=== PATIENT | male | born 1970 | race Caucasian/White ===

== ENCOUNTER 2018-11-14 15:22 | Inpatient (IN) | payer MEDICAID ==
[~2018-11-14] VITALS: Ht 165.1 cm; Wt 104.8 kg
[2018-11-14] MEDS ORDERED: SODIUM BICARBONATE 4% (2.4MEQ) 5ML VIAL IV ONE (15:56)
[2018-11-14] MEDS ORDERED: LIDOCAINE HCL 1% 20ML VIAL (Pyxis) INJ ONE (15:56)
[2018-11-14] MEDS ORDERED: KETOROLAC 30MG/ML VIAL IV STA (17:18)
[2018-11-14] MEDS ORDERED: SODIUM CHLORIDE 0.9% 1,000 ML IV ONE (17:18)
[2018-11-14 19:15] LABS: BASOPHILS % 0.2 % (0.0-2.0); EOSINOPHILS % 0.9 % (0.0-5.0); HEMATOCRIT. 37.5 % (42.0-52.0); HEMOGLOBIN. 13.1 g/dL (14.0-18.0); LYMPHOCYTES % 27.4 % (20.0-50.0); MEAN CORPUSCULAR HEMOGLOBIN 29.1 pg (28.0-32.0); MEAN CORPUSCULAR VOLUME 83.3 fL (80.0-94.0); MEAN PLATELET VOLUME 10.6 fl (7.4-10.4); MONOCYTES % 10.3 % (2.0-8.0); NEUTROPHILS % 61.2 % (40.0-76.0); PLATELET 117 x1000/uL (130-400); RED BLOOD CELL COUNT 4.51 mill/uL (4.7-6.1); RED CELL DISTRIBUTION WIDTH 13.8 % (11.6-14.6)
[2018-11-14] MEDS ORDERED: TAMSULOSIN HCL 0.4MG SR CAPSULE PO ONE (19:15)
[2018-11-14 19:20] LABS: CHLORIDE 107 mEq/L (98-107)
[2018-11-14] MEDS ORDERED: MORPHINE SULFATE 4 MG/ML CPJ (NOT FOR IM USE) IV ONE (19:30)
[2018-11-14] MEDS ORDERED: ONDANSETRON HCL 4MG/2ML INJ IV ONE (19:30)
[2018-11-14] MEDS ORDERED: DOCUSATE SODIUM 100MG CAPSULE PO ONE (19:30)
[2018-11-14 19:33] LABS: CLARITY URINE TURBID (CLEAR); COLOR URINE RED (YELLOW); KETONES URINE 2+ (NEGATIVE); LEUKOCYTE ESTERASE URINE 3+ (NEGATIVE); NITRITE URINE POSITIVE (NEGATIVE); OCCULT BLOOD URINE 3+ (NEGATIVE); PROTEIN URINE 4+ (NEGATIVE); SPECIFIC GRAVITY URINE 1.021 (1.005-1.030)
[2018-11-14] MEDS ORDERED: CEFTRIAXONE 1 G PREMIX 50 ML IV ONE (19:45)
[2018-11-14] MEDS ORDERED: GUAIFENESIN 200MG/10ML SUGAR FREE UDC PO PRN (21:00)
[2018-11-14] MEDS ORDERED: ONDANSETRON HCL 4MG/2ML INJ IV PRN (21:00)
[2018-11-14] MEDS ORDERED: NITROGLYCERIN 0.4MG TABLET SL SL PRN (21:00)
[2018-11-14] MEDS ORDERED: LORAZEPAM 0.5MG TABLET PO PRN (21:00)
[2018-11-14] MEDS ORDERED: IPRATROPIUM/ALBUTEROL 0.5-3(2.5)MG/3ML NEB INH PRN (21:00)
[2018-11-14] MEDS ORDERED: LEVOFLOXACIN 500MG PREMIX 100 ML IV SCH (21:00)
[2018-11-14] MEDS ORDERED: ACETAMINOPHEN 325MG TABLET PO PRN (21:00)
[2018-11-14] MEDS ORDERED: FAMOTIDINE 20MG TABLET PO SCH (21:00)
[2018-11-14] MEDS ORDERED: CLONIDINE 0.1MG TABLET PO PRN (21:00)
[2018-11-14] MEDS ORDERED: ENOXAPARIN 40MG/0.4ML SYR SUBCUT SCH (21:00)
[2018-11-14] MEDS ORDERED: KETOROLAC 15MG/ML VIAL IV PRN (21:17)
[2018-11-14 21:26] LABS: FOLIC ACID (FOLATE) SERUM >20 ng/mL ng/mL (>5.38)
[2018-11-14 21:37] LABS: VITAMIN B12 SERUM 328 pg/mL (211-911)
[2018-11-14 23:55] VITALS: BP 129/57
[2018-11-15] VITALS: BP 129/57
[2018-11-15] MEDS ORDERED: COLC0.6C3 PO (00:57)
[2018-11-15] MEDS ORDERED: PROB500T9 MT (00:57)
[2018-11-15] MEDS: LEVOFLOXACIN 250MG PREMIX 50 ML IV SCH (01:00)
[2018-11-15] MEDS: SODIUM CHLORIDE 0.9% 1,000 ML IV SCH (02:40)
[2018-11-15 04:00] VITALS: BP 104/50
[2018-11-15 08:00] VITALS: BP 113/61
[2018-11-15] MEDS: AMLODIPINE 10MG TABLET PO SCH (08:43)
[2018-11-15] MEDS: FAMOTIDINE 20MG TABLET PO SCH (08:44)
[2018-11-15] MEDS: TAMSULOSIN HCL 0.4MG SR CAPSULE PO SCH (08:44)
[2018-11-15] MEDS: ENOXAPARIN 40MG/0.4ML SYR SUBCUT SCH ×2 (08:45→08:56)
[2018-11-15] MEDS ORDERED: ENOXAPARIN 30MG/0.3ML SYR SUBCUT SCH (09:00)
[2018-11-15 10:59] LABS: HEMATOCRIT 37.5 % (42.0-52.0); HEMOGLOBIN 12.9 g/dL (14.0-18.0); MEAN CORPUSCULAR HEMOGLOBIN 28.6 pg (28.0-32.0); MEAN CORPUSCULAR VOLUME 83.1 fL (80.0-94.0); PLATELET 109 x1000/uL (130-400); RED BLOOD CELL COUNT 4.51 mill/uL (4.7-6.1); RED CELL DISTRIBUTION WIDTH 13.6 % (11.6-14.6)
[2018-11-15 12:00] VITALS: BP 127/63
[2018-11-15] MEDS ORDERED: FENTANYL CITRATE/PF 50MCG/ML 2ML VIAL ONE (13:02)
[2018-11-15] MEDS ORDERED: MIDAZOLAM HCL 2 MG/2 ML VIAL ONE (13:02)
[2018-11-15] MEDS ORDERED: ROCURONIUM BROMIDE 10MG/ML VIAL 5ML IV ONE (13:02)
[2018-11-15] MEDS ORDERED: PROPOFOL 200MG/20ML VIAL IV ONE (13:02)
[2018-11-15] MEDS ORDERED: ONDANSETRON HCL 4MG/2ML INJ ONE (13:32)
[2018-11-15] MEDS ORDERED: SUCCINYLCHOLINE CHLORIDE 200MG/10ML IV ONE (13:32)
[2018-11-15] MEDS ORDERED: METOCLOPRAMIDE HCL 10MG/2ML VIAL ONE (13:32)
[2018-11-15] MEDS ORDERED: NEOSTIGMINE METHYLSULFATE 1MG/ML 10 ML VIAL ONE (13:34)
[2018-11-15] MEDS ORDERED: GLYCOPYRROLATE 0.2 MG/ML 2ML VIAL ONE (13:34)
[2018-11-15] MEDS ORDERED: HALOPERIDOL LACTATE 5MG/ML VIAL IM SCH (14:15)
[2018-11-15] MEDS ORDERED: MORPHINE SULFATE 4 MG/ML CPJ (NOT FOR IM USE) IV PRN (14:30)
[2018-11-15] MEDS ORDERED: ONDANSETRON HCL 4MG/2ML INJ IV PRN (14:30)
[2018-11-15] MEDS ORDERED: MEPERIDINE HCL/PF 25MG/ML CPJ IV PRN (14:30)
[2018-11-15] MEDS ORDERED: FENTANYL CITRATE/PF 50MCG/ML 2ML VIAL IV PRN (14:30)
[2018-11-15] MEDS ORDERED: HYDROMORPHONE HCL/PF 2MG/ML CPJ IV PRN (14:30)
[2018-11-15 17:03] VITALS: BP 122/62
[2018-11-15] MEDS: CEFTRIAXONE 1 G PREMIX 50 ML IV SCH (17:07)
[2018-11-15 20:00] VITALS: BP 101/64
[2018-11-15] MEDS: TRAMADOL 50MG TABLET PO PRN (20:10)
[2018-11-16 00:21] VITALS: BP 106/63
[2018-11-16] MEDS: ZOLPIDEM TARTRATE 5MG TABLET PO PRN (00:23)
[2018-11-16] MEDS: LEVOFLOXACIN 250MG PREMIX 50 ML IV SCH (00:23)
[2018-11-16 04:00] VITALS: BP 101/57
[2018-11-16] MEDS: SODIUM CHLORIDE 0.9% 1,000 ML IV SCH ×2 (07:05→17:14)
[2018-11-16 08:00] VITALS: BP 117/64
[2018-11-16] MEDS: AMLODIPINE 10MG TABLET PO SCH (08:34)
[2018-11-16] MEDS: FAMOTIDINE 20MG TABLET PO SCH (08:34)
[2018-11-16] MEDS: TAMSULOSIN HCL 0.4MG SR CAPSULE PO SCH (08:34)
[2018-11-16] MEDS: ENOXAPARIN 40MG/0.4ML SYR SUBCUT SCH (08:35)
[2018-11-16 10:43] LABS: BASOPHILS % 0.4 % (0.0-2.0); EOSINOPHILS % 0.8 % (0.0-5.0); HEMATOCRIT. 34.9 % (42.0-52.0); HEMOGLOBIN. 12.1 g/dL (14.0-18.0); LYMPHOCYTES % 26.7 % (20.0-50.0); MEAN CORPUSCULAR HEMOGLOBIN 28.7 pg (28.0-32.0); MEAN CORPUSCULAR VOLUME 82.8 fL (80.0-94.0); MEAN PLATELET VOLUME 9.7 fl (7.4-10.4); NEUTROPHILS % 63.1 % (40.0-76.0); PLATELET 109 x1000/uL (130-400); RED BLOOD CELL COUNT 4.22 mill/uL (4.7-6.1); RED CELL DISTRIBUTION WIDTH 13.7 % (11.6-14.6)
[2018-11-16 11:08] LABS: CHLORIDE 108 mEq/L (98-107)
[2018-11-16] MEDS: CEFTRIAXONE 1 G PREMIX 50 ML IV SCH (11:43)
[2018-11-16 12:00] VITALS: BP 111/67
[2018-11-16] MEDS ORDERED: POTASSIUM CHLORIDE 20MEQ TABLET SR PO SCH (12:45)
[2018-11-16 16:00] VITALS: BP 108/68
[2018-11-16] MEDS: DOCUSATE SODIUM 100MG CAPSULE PO PRN ×2 (17:05→23:44)
[2018-11-16] MEDS: MAGNESIUM/ALUMINUM HYDROXIDE/SIMETHICONE 30ML UDC PO PRN (17:11)
[2018-11-16] MEDS: TRAMADOL 50MG TABLET PO PRN ×2 (17:55→23:46)
[2018-11-16 20:00] VITALS: BP 119/76
[2018-11-17] VITALS: BP 123/78
[2018-11-17] MEDS: ZOLPIDEM TARTRATE 5MG TABLET PO PRN (00:05)
[2018-11-17] MEDS: LEVOFLOXACIN 250MG PREMIX 50 ML IV SCH (00:25)
[2018-11-17 04:00] VITALS: BP 107/63
[2018-11-17 05:38] LABS: BASOPHILS % 0.4 % (0.0-2.0); LYMPHOCYTES % 43.1 % (20.0-50.0); MEAN CORPUSCULAR HEMOGLOBIN 28.5 pg (28.0-32.0); MEAN CORPUSCULAR VOLUME 83.4 fL (80.0-94.0); MEAN PLATELET VOLUME 10.6 fl (7.4-10.4); MONOCYTES % 10.3 % (2.0-8.0); NEUTROPHILS % 42.2 % (40.0-76.0); PLATELET 133 x1000/uL (130-400); RED BLOOD CELL COUNT 4.19 mill/uL (4.7-6.1); RED CELL DISTRIBUTION WIDTH 13.2 % (11.6-14.6)
[2018-11-17 05:59] LABS: CHLORIDE 108 mEq/L (98-107)
[2018-11-17 08:00] VITALS: BP 118/65
[2018-11-17] MEDS: AMLODIPINE 10MG TABLET PO SCH (08:28)
[2018-11-17] MEDS: ENOXAPARIN 40MG/0.4ML SYR SUBCUT SCH (08:29)
[2018-11-17] MEDS: FAMOTIDINE 20MG TABLET PO SCH (08:29)
[2018-11-17] MEDS: TAMSULOSIN HCL 0.4MG SR CAPSULE PO SCH (08:29)
[2018-11-17] MEDS: DOCUSATE SODIUM 100MG CAPSULE PO PRN (08:34)
[2018-11-17] MEDS: MAGNESIUM/ALUMINUM HYDROXIDE/SIMETHICONE 30ML UDC PO PRN (08:34)
[2018-11-17] MEDS ORDERED: LACTULOSE 20G/30ML UDC PO NR (09:45)
[2018-11-17 09:46] VITALS: BP 118/65
== END 2018-11-17 12:15 | disposition home or self-care (01) | DRG 446 ==
LOC: ER 15:22 → 6EST 20:19 → EDBEDREQTM 20:42 → EDBEDREQ 20:42 → ENRESERV 23:04
PROVIDERS: ADMIT Internal Medicine; ATTEND Internal Medicine
PROC: 0TC78ZZ Extirpation of Matter from Left Ureter, Via Natural or Artificial Opening Endoscopic (ICD-10-PCS; principal; 2018-11-15)
PROC: 0T788DZ Dilation of Bilateral Ureters with Intraluminal Device, Via Natural or Artificial Opening Endoscopic (ICD-10-PCS; 2018-11-15)
PROC: 0TF68ZZ Fragmentation in Right Ureter, Via Natural or Artificial Opening Endoscopic (ICD-10-PCS; 2018-11-15)
DX: N13.6 Pyonephrosis (principal); N17.0 Acute kidney failure with tubular necrosis; I10 Essential (primary) hypertension; E44.1 Mild protein-calorie malnutrition; E87.6 Hypokalemia; E83.51 Hypocalcemia; D64.9 Anemia, unspecified; M10.9 Gout, unspecified; R31.0 Gross hematuria; K59.00 Constipation, unspecified; Z87.442 Personal history of urinary calculi; Z79.899 Other long term (current) drug therapy; Z68.38 Body mass index [BMI] 38.0-38.9, adult
CPT/HCPCS: 36415; 71045; 74018; 74176; 76000; 80048; 82607; 82746; 83036; 85027; 93005; 94640; 96374; 96375; 99285; C1769; C2617; J0330; J0696; J1630; J1650; J1885; J1956; J2250; J2270; J2405; J2704; J2710; J2765; J3010; J3490; J7030; J7620